=== PATIENT | female | born 1980 | race American Indian/Alaskan Native ===

== ENCOUNTER 2017-06-17 13:49 | Emergency (ER) | payer OTHER ==
--- NOTE | 2017-06-17 15:15 | XRay Report ---
RIGHT HAND, 3 views: History: Right hand pain, middle finger injury. The bony architecture is intact. Bony alignment is normal. No soft tissue abnormalities are seen. The joint spaces appear preserved. IMPRESSION: Normal right hand.
[2017-06-17] MEDS ORDERED: TYLENOL PO ONE (18:33)
--- NOTE | 2017-06-17 19:25 | Emergency Department Report ---
Chief Complaint: Extremity Injury, Upper Stated Complaint: INJURED RIGHT FINGER Time Seen by Provider: 06/17/17 18:08 - HPI History of Present Illness: The patient is a 37-year-old female presents for evaluation of right middle finger pain. Patient states that a glass door fell on her hand greater than 3 days ago. Since she has experienced mild pain since, exacerbated with movement of the finger. She denies purulent drainage or discharge from the wound site. - Exam Vital Signs: Vital Signs 06/17/17 14:12 Temperature 98.1 F Pulse Rate 97 H Respiratory 20 Rate Blood Pressure 150/88 O2 Sat by Pulse 100 Oximetry MSE screening note: Focused history and physical exam performed. Due to findings the following was ordered: ED Disposition for MSE Condition: Stable Referrals: PRIMARY CARE, [Primary Care Provider] - 3-5 Days
--- NOTE | 2017-06-17 19:26 | Emergency Department Report ---
HPI - General Chief Complaint: Extremity Injury, Upper Time Seen by Provider: 06/17/17 18:08 - HPI HPI: The patient is a 37-year-old female presents for evaluation of right middle finger pain. Patient states that a glass door fell on her hand greater than 3 days ago. Since she has experienced mild pain since, exacerbated with movement of the finger. She denies purulent drainage or discharge from the wound site. ED Past Medical Hx - Past Medical History Previous Medical History?: Yes Additional medical history: lupas - Surgical History Past Surgical History?: Yes Additional Surgical History: x 2 - Social History Smoking Status: Never Smoker Substance Use Type: Alcohol, Marijuana, Non Opiate Pain, Prescribed - Medications Home Medications: Home Medications Medication Instructions Recorded Confirmed Last Taken Type Methocarbamol [Robaxin] 750 mg PO BID #14 tab 05/13/13 Unknown Rx traMADol [Ultram] 50 mg PO Q6HR PRN #20 tablet 05/13/13 Unknown Rx Cephalexin [Keflex] 500 mg PO Q12HR #10 cap 06/17/17 Unknown Rx Ibuprofen [Motrin] 800 mg PO Q8HR PRN #20 tablet 06/17/17 Unknown Rx ED Review of Systems ROS: Stated complaint: INJURED RIGHT FINGER Other details as noted in HPI Constitutional: denies: chills, fever Eyes: denies: eye pain, eye discharge, vision change ENT: denies: ear pain, throat pain Respiratory: denies: cough, shortness of breath, wheezing Cardiovascular: denies: chest pain, palpitations Endocrine: no symptoms reported Gastrointestinal: denies: abdominal pain, nausea, diarrhea Genitourinary: denies: urgency, dysuria, discharge Musculoskeletal: denies: back pain, joint swelling, arthralgia Skin: denies: rash, lesions Neurological: denies: headache, weakness, paresthesias Psychiatric: denies: anxiety, depression Hematological/Lymphatic: denies: easy bleeding, easy bruising Physical Exam - Physical Exam Vital Signs: Vital Signs 06/17/17 14:12 Temperature 98.1 F Pulse Rate 97 H Respiratory 20 Rate Blood Pressure 150/88 O2 Sat by Pulse 100 Oximetry Physical Exam: GENERAL: Alert and oriented x3, no apparent distress, Normal Gait, atraumatic. HEAD: Head is normocephalic and a-traumatic. EYES: Extra ocular muscles are intact. Pupils are equal, round, and reactive to light and accommodation. LUNGS: Symetrical with respiration, No wheezing, no rales or crackles, CTAB. HEART: S1, S2 present, regular rate and rhythm without murmur, no rubs, no gallops. Non tender to palpation EXTREMITIES/MUSCULOSKELETAL: No cyanosis, clubbing, rash, lesions or edema. Full ROM bilaterally. UE Pulses 2+ bilaterally. Right ring finger tip moderate contusion, nail bed intact, SKIN: Warm and dry, No lesions, No ulceration or induration present. ED Course Vital Signs 06/17/17 14:12 Temperature 98.1 F Pulse Rate 97 H Respiratory 20 Rate Blood Pressure 150/88 O2 Sat by Pulse 100 Oximetry ED Medical Decision Making - Radiology Data Radiology results: report reviewed, image reviewed cc: ED DOC, MD Fluoro Time In Minutes: RIGHT HAND, 3 views: History: Right hand pain, middle finger injury. The bony architecture is intact. Bony alignment is normal. No soft tissue abnormalities are seen. The joint spaces appear preserved. IMPRESSION: Normal right hand. Transcribed By: TTR Dictated By: FAUSTINO ADAM JR, MD Electronically Authenticated By: FAUSTINO ADAM JR, MD Signed Date/Time: 06/17/17 1505 - Medical Decision Making 37-year-old female presents with fingertip injury ED course:x-rays ordered, x-ray shows no acute bony injury or fracture I discussed findings with the patient. I discussed with patient to take prescription as described. Fingers are intact. No loss of sensation Discussed to follow up with primary care physician. Critical care attestation.: If time is entered above; I have spent that time in minutes in the direct care of this critically ill patient, excluding procedure time. ED Disposition Clinical Impression: Contusion of finger of right hand Qualifiers: Encounter type: initial encounter Finger: ring finger Disposition: DC-01 TO HOME OR SELFCARE Is pt being admited?: No Does the pt Need Aspirin: No Condition: Stable Instructions: Contusion in Adults (ED), Arthralgia (ED) Additional Instructions: follow up with PcP Yor finger is not broken Take your medication as prescribed Prescriptions: Cephalexin [Keflex] 500 mg PO Q12HR #10 cap Ibuprofen [Motrin] 800 mg PO Q8HR PRN #20 tablet PRN Reason: Pain Referrals: PRIMARY CARE, [Primary Care Provider] - 3-5 Days THIEN SANTOS MD [Referring] - 3-5 Days [facility] [Outside] - 3-5 Days [facility] [Outside] - 3-5 Days Forms: Accompanied Note, Work/School Release Form(ED) Time of Disposition: 19:27
[2017-06-17 19:41] VITALS: BP 126/86
== END 2017-06-17 19:41 | disposition home or self-care (01) ==
LOC: ED 13:49
DX: S60.031A Contusion of right middle finger without damage to nail, initial encounter (principal); F12.10 Cannabis abuse, uncomplicated; W23.0XXA Caught, crushed, jammed, or pinched between moving objects, initial encounter; Y93.89 Activity, other specified; Y92.89 Other specified places as the place of occurrence of the external cause; Y99.8 Other external cause status
CPT/HCPCS: 99283